=== PATIENT | male | born 1955 | race Caucasian/White ===

== ENCOUNTER 2022-04-11 11:13 | Emergency (ER) | payer OTHER ==
[2022-04-11 11:36] LABS: HEMOGLOBIN 16.7 gm/dl (14.0-17.5); RED BLOOD COUNT 4.9 M/UL (4.20-5.50); WHITE BLOOD COUNT 18.4 K/UL (4.5-11.0)
[2022-04-11 12:15] LABS: BUN/CREATININE RATIO 17 (0-10)
== END 2022-04-11 22:53 | disposition short-term general hospital (02) ==
LOC: ER1 11:13
PROVIDERS: Physician Assistant Medical
DX: I63.512 Cerebral infarction due to unspecified occlusion or stenosis of left middle cerebral artery (principal); I62.9 Nontraumatic intracranial hemorrhage, unspecified; I21.19 ST elevation (STEMI) myocardial infarction involving other coronary artery of inferior wall; I48.92 Unspecified atrial flutter; G93.40 Encephalopathy, unspecified; J96.01 Acute respiratory failure with hypoxia; F10.10 Alcohol abuse, uncomplicated; R29.720 NIHSS score 20; Z88.6 Allergy status to analgesic agent; F17.200 Nicotine dependence, unspecified, uncomplicated; Z20.822 Contact with and (suspected) exposure to COVID-19
CPT/HCPCS: 31500; 70450; 71045; 80053; 81001; 82550; 82553; 83880; 84484; 85025; 85610; 85730; 87040; 93005; 94002; 94760; 99285; J0696; J2250; U0002